=== PATIENT | female | born 1965 | race Two or more races ===

== ENCOUNTER → 2021-07-25 | Outpatient (CLI) | payer OTHER ==
[2021-07-25 08:21] LABS: Basophils # (auto) 0 10 ^3/uL (0-0.2); Basophils % (auto) 0.4 % (0.0-2.0); Eosinophils # (auto) 0.1 10 ^3/uL (0-0.8); Eosinophils % (auto) 1.1 % (0.0-7.0); Hematocrit 40.7 % (36.0-46.0); Hemoglobin 14.4 g/dL (12.2-16.2); Lymphocytes # (auto) 2.6 10 ^3/uL (0.4-5.4); Lymphocytes % (auto) 45.3 % (10.0-50.0); Mean Corpuscular Hemoglobin 29.9 pg (28.0-32.0); Mean Corpuscular Hgb Conc. 35.4 g/dL (32.0-36.0); Mean Corpuscular Volume 84.4 fL (80.0-100.0); Monocytes # (auto) 0.2 10 ^3/uL (0-1.3); Monocytes % (auto) 4.1 % (0.0-12.0); Neutrophils # (auto) 2.8 10 ^3/uL (1.6-8.6); Neutrophils % (auto) 49.1 % (37.0-80.0); Nucleated Red Blood Cells % 0.2 %; Red Blood Cells 4.82 10^6/uL (4.0-5.20); Red Cell Distribution Width 13.5 % (11.8-14.3); White Blood Cell 5.8 10^3/uL (4.4-10.8)
[2021-07-25 08:22] LABS: Urine Bacteria NONE SEEN /hpf (None Seen); Urine Blood Negative /uL (Negative); Urine Budding Yeast OCCASIONAL /hpf (None Seen); Urine Mucus FEW (None Seen); Urine Specific Gravity 1.023 (1.001-1.035); Urine WBC 6 /hpf (0 - 5)
[2021-07-25 09:03] LABS: Albumin 4.1 g/dL (3.4-5.0); Calcium 9.4 mg/dL (8.5-10.1); Potassium 4.5 mmol/L (3.5-5.1)
[2021-07-25 09:07] LABS: BUN/Creatinine Ratio 19.4; Bilirubin, Total 1.5 mg/dL (0.2-1.0); Total Protein 7.3 g/dL (6.4-8.2)
== END | disposition home or self-care (01) ==
LOC: LAB 07:49
PROVIDERS: ATTEND Internal Medicine
DX: E11.9 Type 2 diabetes mellitus without complications (principal); I10 Essential (primary) hypertension; E78.5 Hyperlipidemia, unspecified
CPT/HCPCS: 36415; 80053; 80061; 81001; 82043; 83036; 84443; 85025

== ENCOUNTER → 2021-08-11 | Outpatient (CLI) | payer OTHER | END | disposition home or self-care (01) | LOC: LAB 13:33 | PROVIDERS: ATTEND Internal Medicine | DX: E78.5 Hyperlipidemia, unspecified (principal); E11.9 Type 2 diabetes mellitus without complications; I10 Essential (primary) hypertension | CPT/HCPCS: 82270 ==

== ENCOUNTER → 2021-08-19 | Outpatient (CLI) | payer OTHER ==
[2021-08-19 10:09] LABS: Albumin 4.1 g/dL (3.4-5.0)
[2021-08-19 10:14] LABS: Bilirubin, Direct 0.4 mg/dL (0-0.2); Bilirubin, Total 1.4 mg/dL (0.2-1.0); Total Protein 7.7 g/dL (6.4-8.2)
== END | disposition home or self-care (01) ==
LOC: LAB 09:04
PROVIDERS: ATTEND Internal Medicine
DX: E78.5 Hyperlipidemia, unspecified (principal); E11.9 Type 2 diabetes mellitus without complications
CPT/HCPCS: 36415; 80076

== ENCOUNTER 2021-10-11 09:56 | Emergency (ER) | payer OTHER ==
[~2021-10-11] VITALS: Ht 172.7 cm; Wt 77.7 kg
[2021-10-11 11:01] LABS: Basophils # (auto) 0 10 ^3/uL (0-0.2); Basophils % (auto) 0.5 % (0.0-2.0); Eosinophils # (auto) 0.1 10 ^3/uL (0-0.8); Eosinophils % (auto) 1.2 % (0.0-7.0); Hematocrit 45.7 % (36.0-46.0); Lymphocytes # (auto) 2.2 10 ^3/uL (0.4-5.4); Lymphocytes % (auto) 40.5 % (10.0-50.0); Mean Corpuscular Hemoglobin 28.4 pg (28.0-32.0); Mean Corpuscular Hgb Conc. 32.8 g/dL (32.0-36.0); Mean Corpuscular Volume 86.4 fL (80.0-100.0); Monocytes # (auto) 0.3 10 ^3/uL (0-1.3); Neutrophils # (auto) 2.9 10 ^3/uL (1.6-8.6); Neutrophils % (auto) 52.8 % (37.0-80.0); Nucleated Red Blood Cells % 0.1 %; Red Blood Cells 5.29 10^6/uL (4.0-5.20); White Blood Cell 5.5 10^3/uL (4.4-10.8)
[2021-10-11 11:25] LABS: Albumin 4.4 g/dL (3.4-5.0); BUN/Creatinine Ratio 22.2; Calcium 9.2 mg/dL (8.5-10.1); Magnesium 2.1 mg/dL (1.6-2.6)
[2021-10-11 11:28] LABS: Bilirubin, Total 1.2 mg/dL (0.2-1.0); Total Protein 7.6 g/dL (6.4-8.2)
[2021-10-11 13:20] VITALS: BP 139/87
== END 2021-10-11 13:28 | disposition home or self-care (01) ==
LOC: ER 09:56
DX: R07.89 Other chest pain (principal); R00.2 Palpitations; E11.9 Type 2 diabetes mellitus without complications; I10 Essential (primary) hypertension; E78.5 Hyperlipidemia, unspecified; Z85.3 Personal history of malignant neoplasm of breast
CPT/HCPCS: 36415; 71046; 80053; 83735; 84443; 84484; 85025; 93005

== ENCOUNTER → 2021-12-01 | Outpatient (CLI) | payer OTHER ==
[2021-12-01 08:30] LABS: Basophils # (auto) 0 10 ^3/uL (0-0.2); Basophils % (auto) 0.4 % (0.0-2.0); Eosinophils # (auto) 0.1 10 ^3/uL (0-0.8); Eosinophils % (auto) 1.4 % (0.0-7.0); Hematocrit 44.7 % (36.0-46.0); Hemoglobin 15.1 g/dL (12.2-16.2); Lymphocytes # (auto) 2.6 10 ^3/uL (0.4-5.4); Lymphocytes % (auto) 44.8 % (10.0-50.0); Mean Corpuscular Hemoglobin 28.3 pg (28.0-32.0); Mean Corpuscular Hgb Conc. 33.7 g/dL (32.0-36.0); Mean Corpuscular Volume 84.1 fL (80.0-100.0); Monocytes # (auto) 0.3 10 ^3/uL (0-1.3); Monocytes % (auto) 4.6 % (0.0-12.0); Neutrophils # (auto) 2.8 10 ^3/uL (1.6-8.6); Neutrophils % (auto) 48.8 % (37.0-80.0); Nucleated Red Blood Cells % 0.2 %; Red Blood Cells 5.32 10^6/uL (4.0-5.20); Red Cell Distribution Width 12.9 % (11.8-14.3); White Blood Cell 5.8 10^3/uL (4.4-10.8)
[2021-12-01 09:18] LABS: Albumin 3.9 g/dL (3.4-5.0); Anion Gap 9 (5-15); Carbon Dioxide 27 mmol/L (21-32); Chloride 103 mmol/L (98-107); Potassium 4.3 mmol/L (3.5-5.1); Sodium 139 mmol/L (136-145)
[2021-12-01 09:26] LABS: Alanine Aminotransferase 58 U/L (13-56); Alkaline Phosphatase 70 U/L (45-117); Aspartate Aminotransferase 28 U/L (15-37); BUN/Creatinine Ratio 22.6; Bilirubin, Total 1.2 mg/dL (0.2-1.0); Blood Urea Nitrogen 14 mg/dL (7-18); Calcium 9.3 mg/dL (8.5-10.1); Cholesterol 161 mg/dL (< 200); GFR African American 128 mL/min; GFR Non-African American 106 mL/min; Glucose 224 mg/dL (74-106); HDL Cholesterol 30 mg/dL (40-59); Total Protein 7.3 g/dL (6.4-8.2); Triglycerides 603 mg/dL (< 150)
== END | disposition home or self-care (01) ==
LOC: LAB 08:11
PROVIDERS: ATTEND Internal Medicine
DX: E11.9 Type 2 diabetes mellitus without complications (principal); R79.89 Other specified abnormal findings of blood chemistry; E78.5 Hyperlipidemia, unspecified
CPT/HCPCS: 36415; 80053; 80061; 83036; 85025

== ENCOUNTER → 2021-12-04 | Outpatient (CLI) | payer OTHER ==
[2021-12-04 10:10] LABS: Cholesterol 153 mg/dL (< 200); HDL Cholesterol 29 mg/dL (40-59); Triglycerides 490 mg/dL (< 150)
== END | disposition home or self-care (01) ==
LOC: LAB 09:21
PROVIDERS: ATTEND Internal Medicine
DX: R79.89 Other specified abnormal findings of blood chemistry (principal)
CPT/HCPCS: 36415; 80061

== ENCOUNTER → 2022-10-13 | Outpatient (CLI) | payer OTHER ==
[2022-10-13 08:57] LABS: Urine Bacteria NONE SEEN /hpf (None Seen); Urine Blood Negative /uL (Negative); Urine Clarity Clear (Clear); Urine Color Yellow (Yellow); Urine Protein, UAD Negative (Negative); Urine Specific Gravity 1.047 (1.001-1.035); Urine Urobilinogen Normal (Negative); Urine WBC 17 /hpf (0 - 5); Urine pH 5.5 (5.0-8.0)
[2022-10-13 09:16] LABS: Albumin 3.8 g/dL (3.4-5.0); Potassium 3.9 mmol/L (3.5-5.1)
[2022-10-13 09:23] LABS: BUN/Creatinine Ratio 23.1 (10.0-20.0); Bilirubin, Total 1.1 mg/dL (0.2-1.0); Calcium 9.3 mg/dL (8.5-10.1)
[2022-10-13 09:40] LABS: Micro Albumin 13.9 mg/L (0-30.0)
== END | disposition home or self-care (01) ==
LOC: LAB 08:08
PROVIDERS: ATTEND Internal Medicine
DX: E11.9 Type 2 diabetes mellitus without complications (principal); E78.5 Hyperlipidemia, unspecified
CPT/HCPCS: 36415; 80053; 80061; 81001; 82043; 82570; 83036

== ENCOUNTER → 2022-11-18 | Outpatient (CLI) | payer OTHER ==
[2022-11-18 08:35] LABS: Albumin 4.7 g/dL (3.2-4.8); Bilirubin, Direct 0.4 mg/dL (<0.3); Bilirubin, Total 1.6 mg/dL (0.2-1.0); Total Protein 7.4 g/dL (5.7-8.2)
== END | disposition home or self-care (01) ==
LOC: LAB 07:45
PROVIDERS: ATTEND Internal Medicine
DX: E78.5 Hyperlipidemia, unspecified (principal)
CPT/HCPCS: 36415; 80076

== ENCOUNTER → 2023-01-20 | Outpatient (CLI) | payer OTHER ==
[2023-01-20 08:42] LABS: Creatinine, Urine 93.62 mg/dL (30.0-125.0)
[2023-01-20 08:46] LABS: Alanine Aminotransferase 22 U/L (7-40); Albumin 4.5 g/dL (3.2-4.8); Alkaline Phosphatase 44 U/L (46-116); Anion Gap 6 (5-15); Aspartate Aminotransferase 15 U/L (13-40); BUN/Creatinine Ratio 16.7 (10.0-20.0); Blood Urea Nitrogen 11 mg/dL (9-23); Calcium 9.5 mg/dL (8.5-10.1); Carbon Dioxide 29 mmol/L (20-30); Chloride 110 mmol/L (98-107); Glucose 115 mg/dL (74-106); LDL Cholesterol 36 mg/dL (< 100); Potassium 4.3 mmol/L (3.5-5.1); Sodium 145 mmol/L (136-145); Triglycerides 95 mg/dL (< 150)
[2023-01-20 08:47] LABS: Bilirubin, Direct 0.7 mg/dL (<0.3); Bilirubin, Total 1.5 mg/dL (0.2-1.0); Cholesterol 82 mg/dL (< 200); HDL Cholesterol 26 mg/dL (40-59); Total Protein 6.8 g/dL (5.7-8.2)
== END | disposition home or self-care (01) ==
LOC: LAB 07:47
PROVIDERS: ATTEND Internal Medicine
DX: E11.9 Type 2 diabetes mellitus without complications (principal); E78.5 Hyperlipidemia, unspecified
CPT/HCPCS: 36415; 80053; 80061; 80076; 82043; 82570; 83036

== ENCOUNTER → 2023-10-28 | Outpatient (CLI) | payer OTHER ==
[2023-10-28 08:28] LABS: Basophils # (auto) 0 10 ^3/uL (0-0.2); Basophils % (auto) 0.3 % (0.0-2.0); Eosinophils # (auto) 0 10 ^3/uL (0-0.8); Eosinophils % (auto) 0.6 % (0.0-7.0); Hematocrit 44.8 % (36.0-46.0); Hemoglobin 15.6 g/dL (12.2-16.2); Lymphocytes # (auto) 1.8 10 ^3/uL (0.4-5.4); Lymphocytes % (auto) 28.9 % (10.0-50.0); Mean Corpuscular Hemoglobin 30.4 pg (28.0-32.0); Mean Corpuscular Hgb Conc. 34.8 g/dL (32.0-36.0); Mean Corpuscular Volume 87.3 fL (80.0-100.0); Monocytes # (auto) 0.5 10 ^3/uL (0-1.3); Monocytes % (auto) 7.6 % (0.0-12.0); Neutrophils # (auto) 3.8 10 ^3/uL (1.6-8.6); Neutrophils % (auto) 62.6 % (37.0-80.0); Nucleated Red Blood Cells % 0.2 %; Platelet Count (auto) 127 10^3/uL (140-450); Red Blood Cells 5.13 10^6/uL (4.0-5.20); Red Cell Distribution Width 12.9 % (11.8-14.3); White Blood Cell 6.1 10^3/uL (4.4-10.8)
[2023-10-28 09:43] LABS: Creatinine, Urine 153.52 mg/dL (30.0-125.0)
[2023-10-28 09:46] LABS: Alanine Aminotransferase 10 U/L (7-40); Alkaline Phosphatase 64 U/L (46-116); Anion Gap 6 (5-15); BUN/Creatinine Ratio 17.7 (10.0-20.0); Blood Urea Nitrogen 14 mg/dL (9-23); Calcium 10.3 mg/dL (8.7-10.4); Carbon Dioxide 28 mmol/L (20-30); Chloride 104 mmol/L (98-107); Glucose 129 mg/dL (74-106); LDL Cholesterol 98 mg/dL (< 100); Potassium 4.7 mmol/L (3.5-5.1); Sodium 138 mmol/L (136-145); Triglycerides 158 mg/dL (< 150)
[2023-10-28 09:47] LABS: Albumin 4.7 g/dL (3.2-4.8); Aspartate Aminotransferase 10 U/L (13-40); Cholesterol 162 mg/dL (< 200); HDL Cholesterol 39 mg/dL (40-59); Total Protein 7.8 g/dL (5.7-8.2)
== END | disposition home or self-care (01) ==
LOC: LAB 08:04
PROVIDERS: ATTEND Internal Medicine
DX: I10 Essential (primary) hypertension (principal); E11.9 Type 2 diabetes mellitus without complications; E78.5 Hyperlipidemia, unspecified; R00.0 Tachycardia, unspecified
CPT/HCPCS: 36415; 80053; 80061; 82043; 82570; 83036; 84443; 85025; 85379

== ENCOUNTER → 2023-11-08 | Outpatient (CLI) | payer OTHER ==
--- NOTE | 2023-11-08 14:54 | DVHSR ---
APPROVED REPORT EXAM: Two-dimensional and M-mode echocardiogram with Doppler and color Doppler. INDICATION Tachycardia RISK FACTORS Height: 68, Weight: 151 DIMENSIONS LVDd (3.8-5.7cm)LA (2D)2.3 (1.9-4.0cm)Aortic Root2.8 (2.0-3.7cm) EF (%) 56.0 (55-70%)Rt. Atrium3.2 (1.9-4.0cm)Asc. Aorta cm Mitral Valve MitralMitral Stenosis E wave0.66m/sMV Mean GR.mmHg A wave0.98m/sMV Peak GR.62mmHg E/A ratio0.72D MVAcm2 DECEL [id number] 1/2 Timems Aortic Valve Aortic ValveAortic Stenosis V10.93m/Lu Mean GR.2mmHg V20.94m/Lu Peak GR.4mmHg LVOT Diameter2.0 (1.8-2.4cm)Doppler AVA3.11cm2 Tricuspid Valve TR Velocity2.19m/s [id number] Other Information Quality : Technically LimitedRhythm : Technically limited study due to body habitus. Conclusion Parasternals not well visualized due to breast augmentation. Overall preserved left ventricular systolic function, estimated ejection fraction of 55%. There is a grade 1 diastolic dysfunction. Normal right ventricular size and dimension. Normal right ventricular systolic function. Normal pao trial size and dimension. Normal aortic valve structure and function. Normal mitral valve structure and function. Normal tricuspid valve structure and function. The pulmonary valve is grossly normal. No pericardial effusion.
== END | disposition home or self-care (01) ==
LOC: XYW 13:34
PROVIDERS: ATTEND Internal Medicine
DX: R00.0 Tachycardia, unspecified (principal)
CPT/HCPCS: 93306

== ENCOUNTER → 2023-12-06 | Outpatient (CLI) | payer OTHER ==
[2023-12-06 08:06] LABS: Albumin 4.6 g/dL (3.2-4.8); Bilirubin, Direct 0.2 mg/dL (<0.3); Bilirubin, Total 0.8 mg/dL (0.2-1.0); Total Protein 7.3 g/dL (5.7-8.2)
== END | disposition home or self-care (01) ==
LOC: LAB 07:07
PROVIDERS: ATTEND Internal Medicine
DX: E78.5 Hyperlipidemia, unspecified (principal)
CPT/HCPCS: 36415; 80076

== ENCOUNTER 2024-10-06 06:33 | Emergency (ER) | payer MEDICAID, OTHER ==
[~2024-10-06] VITALS: Ht 172.7 cm; Wt 75.5 kg
[2024-10-06] MEDS ORDERED: SODIUM CHLORIDE 0.9% 1,000 ML IV ONE ×2 (07:00)
[2024-10-06] MEDS ORDERED: ONDANSETRON HCL 4 MG/2 ML VIAL IV ONE (07:00)
[2024-10-06] MEDS ORDERED: MORPHINE SULFATE 4 MG/ML SYR/VIAL IV ONE (07:00)
--- NOTE | 2024-10-06 07:07 | ED.PDOC ---
SOB-HPI HPI Comments 58 year old female presents to the ED with a chief complaint of shortness of breath onset 1 day. Patient states she has been experiencing shortness of breath for the past day, states she has been under stress recently, experiencing anxiety as well. For the past week, patient noticed intermittent palpitations. PMHx cancer, DM, HLD, HTN. Denies headache, dizziness, nausea, vomiting, diarrhea, abdominal pain, chest pain, fever, chills, cough, congestion. No other symptoms or modifying factors present at this time. Chief Complaint: Shortness of Breath Time Seen by MD: 06:50 Reviewed notes: Medications, Allergies Information Source: Patient Mode of Arrival: Ambulatory Severity: Moderate Timing: Days Duration: Since onset Context: At Rest PE Risk Factors: None History of: Anxiety Prehospital treatment: None Modifying Factors: Nothing Associated Signs and Symptoms: None Past Medical History PAST MEDICAL HISTORY: Anxiety, Cancer, DM, High Lipids, HTN Surgical History: Cholecystectomy, , Hysterectomy ECONOMICS TEACHER History: No Pertinent ECONOMICS TEACHER History Family History Family History: Family hx of DM Social History Smoker: Non-Smoker Alcohol: Denies ETOH Use Drugs: Denies Drug Use Lives In: Home Constitutional: denies: chills, diaphoresis, fatigue, fever, malaise, sweats, weakness, others EENTM: denies: blurred vision, double vision, ear bleeding, ear discharge, ear drainage, ear pain, ear ringing, eye pain, eye redness, hearing loss, mouth pain, mouth swelling, nasal discharge, nose bleeding, nose congestion, nose pain, photophobia, tearing, throat pain, throat swelling, voice changes, others Respiratory: reports: shortness of breath; denies: cough, hemoptysis, orthopnea, SOB at rest, SOB with excertion, stridor, wheezing, others Cardiovascular: reports: palpitations; denies: chest pain, dizzy spells, diaphoresis, Dyspnea on exertion, edema, irregular heart beat, left arm pain, lightheadedness, PND, syncope, others Gastrointestinal: denies: abdomen distended, abdominal pain, blood streaked bowels, constipated, diarrhea, dysphagia, difficulty swallowing, hematemesis, melena, nausea, poor appetite, poor fluid intake, rectal bleeding, rectal pain, vomiting, others Genitourinary: denies: abnormal vagina bleeding, burning, dyspareunia, dysuria, flank pain, frequency, hematuria, incontinence, pain, , vagina dischar ge, urgency, others Neurological: denies: dizziness, fainting, headache, left sided numbness, left sided weakness, numbness, paresthesia, pre-existing deficit, right sided numbness, right sided weakness, seizure, speech problems, tingling, tremors, weakness, others Musculoskeletal: denies: back pain, gout, joint pain, joint swelling, muscle pain, muscle stiffness, neck pain, others Integumetry: denies: bruises, change in color, change in hair/nails, dryness, laceration, lesions, lumps, rash, wounds, others Allergic/Immunocompromised: denies: Difficulty Healing, Frequent Infections, Hives, Itching, others Hematologic/Lymphatic: denies: anemia, blood clots, easy bleeding, easy bruising, swollen glands, others Endocrine: denies: excessive hunger, excessive sweating, excessive thirst, excessive urination, flushing, intolerance to cold, intolerance to heat, unexplained weight gain, unexplained weight loss, others Psychiatric: reports: anxiety; denies: bipolar disorder, depression, hopeless, panic disorder, schizophrenia, sleepless, suicidal, others All Other Systems: Reviewed and Negative Physical Exam General Appearance: Moderate Distress, Normal HEENT: Normal ENT Inspection, Pharynx Normal, TMs Normal Neck: Full Range of Motion, Non-Tender, Normal, Normal Inspection Respiratory: Chest Non-Tender, Lungs Clear, No Accessory Muscle Use, No Respiratory Distress, Normal Breath Sounds Cardiovascular: No Edema, No JVD, No Murmur, No Gallop, Normal Peripheral Pulses, Regular Rate/Rhythm Breast Exam: Deferred Gastrointestinal: No Organomegaly, Non Tender, No Pulsatile Mass, Normal Bowel Sounds, Soft Genitalia: Deferred Pelvic: Deferred Rectal: Deferred Extremities: No calf tenderness, Normal capillary refill, Normal inspection, Normal range of motion, Non-tender, No pedal edema Musculoskeletal : Apperance: Normal Neurologic: Alert, guard dance hall II-XII nml as Tested, No Motor Deficits, Normal Affect, Normal Mood, No Sensory Deficits Cerebellar Function: Normal Reflexes: Normal Skin: Dry, Normal Color, Warm Peripheral Pulses: 3+ Radial (R), 3+ Radial (L) Lymphatic: No Adenopathy Was a procedure done? Was a procedure done?: No Differential Dx Differential Diagnosis: Anxiety, Asthma, Bronchitis, CHF, COPD X-Ray, Labs, Meds, VS Vital Signs Date Time Temp Pulse Resp B/P (MAP) Pulse Ox O2 Delivery O2 Flow Rate FiO2 10/06/24 06:34 98.2 98 16 155/101 96 98.2 Lab Test 10/06/24 07:08 Range/Units D-Dimer, Quantitative 0.25 0.0-0.49 mg/L FEU Patient alert. Came in because of shortness a breath. Saturation pristine on room air. No sign of any distress. Ambulating without difficulty. Respiratory rate within normal limits. Lungs clear. Blood pressure slightly elevated. Possibly from anxiety. Was given clonidine. D-dimer within normal limits. Was given prescription of prednisone amoxicillin antibiotic. Explained to the patient. Was told to follow up with her primary care physician. Was told to come back if there is any problem. [place] [id number] Ph: [phone] DIAGNOSTIC IMAGING Diagnostic Imaging Report : [id number] Signed PATIENT: CRISTIAN METCALF ACCT: [id number] UNIT: [id number] : 1965 LOC: ER ROOM / BED: / AGE / SEX: 58 / F ADM STATUS: REG ER SERVICE 5 ORDERING PHYSICIAN: MELANIE HOANG MD PROCEDURE(s): CXRP - CHEST PORTABLE REASON: sob ORDER NUMBER(s): [id number], ACCESSION NUMBER(s): [id number] CHEST RADIOGRAPH Indication: sob Technique: Single frontal view of the chest was obtained Comparison: CHEST TWO VIEWS ROUTINE on DOS: 10/11/21 FINDINGS: Lines and Tubes: None Lungs: No focal consolidation. Pleura: No effusion. No pneumothorax. Cardiomediastinal contours: Unremarkable Bones: No acute osseous abnormality. Mild S shaped curvature of the thoracolumbar spine. IMPRESSION: 1. No acute cardiopulmonary disease. ATED BY: ARELI ROTH MD DICTATED DATE/TIME: 10/06/24754 SIGNED BY: ARELI ROTH MD SIGNED DATE/TIME: 10/06/24754 CC: Time of 1ST Reevaluation: 07:20 Reevaluation 1ST: Unchanged Patient Education/Counseling: Diagnosis, Treatment, Prognosis Family Education/Counseling: No Family Present Additional Information The following tests were ordered, and results were reviewed by me: CBC, CMP, UA, D-DIMER, XY CHEST I reviewed and agreed with the following test results read by other providers: XY CHEST I discussed treatment and results with medical personnel and: patient Comprehensive systems review obtained and negative except for what is stated in the HPI. SEPSIS Sepsis Screen Date sepsis recognized/suspect: Oct 06, 2024 Time Sepsis recognized/suspect: 636 Recent Procedure: No On Antibiotic Therapy: No Respiratory Rate >20: No Heart Rate >90: No Temp<36 C (96.8 F) or >38.3 C: No SBP <90 or MAP <65 mmHG: No New Acute Mental Status Change: No Is the patient on CPAP, BIPAP,: No Physician Orders Chest Portable (10/06/24 07:16) Vital Signs Date Time Temp Pulse Resp B/P (MAP) Pulse Ox O2 Delivery O2 Flow Rate FiO2 10/06/24 06:34 98.2 98 16 155/101 96 98.2 Departure 1 Departure Time of Disposition: 07:27 Impression: Primary Impression: Pneumonitis Additional Impression: Hypertension Qualified Codes: I10 - Essential (primary) hypertension Disposition: HOME / SELF CARE / HOMELESS Condition: Good e-Prescriptions Prednisone (Prednisone) 10 Mg Tab 10 MG PO DAILY for 5 Days, #5 MG Prov: MELANIE HOANG MD 10/06/24 Amoxicillin Trihydrate (Amoxicillin) 500 Mg Tab 1 TAB PO TID for 5 Days, #15 TAB Prov: MELANIE HOANG MD 10/06/24 Discharged With: Self Critical Care Note Critical Care Time?: No Stability Stability form required: No Heart Score Heart Score: Heart Score Response (Comments) Value History N/A 0 EKG N/A 0 Age N/A 0 Risk Factors N/A 0 Troponin N/A 0 Total 0 I personally scribed for MELANIE HOANG MD ([email or web address]) on 10/06/24 at 07:07. Electronically submitted by Clare Stanford ([email or web address]). I personally scribed for MELANIE HOANG MD ([email or web address]) on 10/06/24 at 07:18. Electronically submitted by Clare Stanford ([email or web address]). I personally scribed for MELANIE HOANG MD ([email or web address]) on 10/06/24 at 09:30. Electronically submitted by Clare Stanford ([email or web address]). MELANIE HOANG MD Oct 06, 2024 07:07
--- NOTE | 2024-10-06 07:57 | DVH ---
CHEST RADIOGRAPH Indication: sob Technique: Single frontal view of the chest was obtained Comparison: CHEST TWO VIEWS ROUTINE on DOS: 10/11/21 FINDINGS: Lines and Tubes: None Lungs: No focal consolidation. Pleura: No effusion. No pneumothorax. Cardiomediastinal contours: Unremarkable Bones: No acute osseous abnormality. Mild S shaped curvature of the thoracolumbar spine. IMPRESSION: 1. No acute cardiopulmonary disease.
[2024-10-06] MEDS ORDERED: PRED10TA PO (10:35)
[2024-10-06] MEDS ORDERED: AMOX500T3 PO (10:35)
[2024-10-06 14:36] VITALS: BP 137/90; PULSE 85; RESP 16; TEMP 98.3; O2SAT 95
== END 2024-10-06 14:38 | disposition home or self-care (01) ==
LOC: ER 06:33
DX: J98.4 Other disorders of lung (principal); I10 Essential (primary) hypertension; F41.9 Anxiety disorder, unspecified; E11.9 Type 2 diabetes mellitus without complications; E78.5 Hyperlipidemia, unspecified; Z85.9 Personal history of malignant neoplasm, unspecified; Z90.710 Acquired absence of both cervix and uterus; Z90.49 Acquired absence of other specified parts of digestive tract; Z98.890 Other specified postprocedural states
CPT/HCPCS: 36415; 71045; 85379

== ENCOUNTER 2024-10-22 17:11 | Emergency (ER) | payer MEDICAID ==
[~2024-10-22] VITALS: Ht 172.7 cm; Wt 75.0 kg
[~2024-10-22 17:11] MED LIST: AMOX500T3 PO; PRED10TA PO
--- NOTE | 2024-10-22 17:55 | ED.PDOC ---
HPI Comments 58 y.o female with PMHx of HTN and DM, presents to the ED for a chief complaint of palpitations associated with left arm tingling sensation and upper back pain that started one month ago. Patient reports being seen by PCP 3-4 days ago and was referred to a orchard worker with pending referral. Patient denies any chest pain, nausea, vomiting, SOB, fever, chills or leg swelling. Chief Complaint: Palpitations Time Seen by MD: 17:51 Reviewed Notes: Nurses Notes, Medications, Allergies Allergies: Coded Allergies: NO KNOWN ALLERGIES (Unverified , 10/11/21) Home Meds Active Scripts Prednisone (Prednisone) 10 Mg Tab, 10 MG PO DAILY for 5 Days, #5 MG Prov:MELANIE HOANG MD 10/06/24 Amoxicillin Trihydrate (Amoxicillin) 500 Mg Tab, 1 TAB PO TID for 5 Days, #15 TAB Prov:MELANIE HOANG MD 10/06/24 Information Source: Patient Mode of Arrival: Ambulatory Severity: Moderate Timing: Months (1) Duration: Since onset Onset: At Rest Cardiac Risk Factors: HTN, Diabetes PE Risk Factors: None History of: None Modifying Factors: Nothing Associated Signs and Symptoms: Palpitations Past Medical History PAST MEDICAL HISTORY: Anxiety, Cancer, DM, High Lipids, HTN Surgical History: Cholecystectomy, , Hysterectomy STRUCTURAL STEEL WORKER HELPER History: No Pertinent STRUCTURAL STEEL WORKER HELPER History Family History Family History: Family hx of DM Social History Smoker: Non-Smoker Alcohol: Denies ETOH Use Drugs: Denies Drug Use Lives In: Home Constitutional: denies: chills, diaphoresis, fatigue, fever, malaise, sweats, weakness, others EENTM: denies: blurred vision, double vision, ear bleeding, ear discharge, ear drainage, ear pain, ear ringing, eye pain, eye redness, hearing loss, mouth pain , mouth swelling, nasal discharge, nose bleeding, nose congestion, nose pain, photophobia, tearing, throat pain, throat swelling, voice changes, others Respiratory: denies: cough, hemoptysis, orthopnea, SOB at rest, shortness of breath, SOB with excertion, stridor, wheezing, others Cardiovascular: reports: palpitations; denies: chest pain, dizzy spells, diaphoresis, Dyspnea on exertion, edema, irregular heart beat, left arm pain, lightheadedness, PND, syncope, others Gastrointestinal: denies: abdomen distended, abdominal pain, blood streaked bowels, constipated, diarrhea, dysphagia, difficulty swallowing, hematemesis, melena, nausea, poor appetite, poor fluid intake, rectal bleeding, rectal pain, vomiting, others Genitourinary: denies: abnormal vagina bleeding, burning, dyspareunia, dysuria, flank pain, frequency, hematuria, incontinence, pain, , vagina discharge, urgency, others Neurological: denies: dizziness, fainting, headache, left sided numbness, left sided weakness, numbness, paresthesia, pre-existing deficit, right sided numbness, right sided weakness, seizure, speech problems, tingling, tremors, weakness, others Musculoskeletal: denies: back pain, gout, joint pain, joint swelling, muscle pain, muscle stiffness, neck pain, others Integumetry: denies: bruises, change in color, change in hair/nails, dryness, laceration, lesions, lumps, rash, wounds, others Allergic/Immunocompromised: denies: Difficulty Healing, Frequent Infections, Hives, Itching, others Hematologic/Lymphatic: denies: anemia, blood clots, easy bleeding, easy bruising, swollen glands, others Endocrine: denies: excessive hunger, excessive sweating, excessive thirst, excessive urination, flushing, intolerance to cold, intolerance to heat, unexplained weight gain, unexplained weight loss, others Psychiatric: denies: anxiety, bipolar disorder, depression, hopeless, panic disorder, schizophrenia, sleepless, suicidal, others All Other Systems: Reviewed and Negative Physical Exam General Appearance: No Apparent Distress, Normal HEENT: Normal ENT Inspection, PERRL/EOMI Neck: Full Range of Motion, Normal Inspection Respiratory: No Accessory Muscle Use, No Respiratory Distress, Normal Breath Sounds Cardiovascular: Normal Peripheral Pulses, Regular Rate/Rhythm Breast Exam: Deferred Gastrointestinal: No Organomegaly, Non Tender, No Pulsatile Mass Genitalia: Deferred Pelvic: Deferred Rectal: Deferred Extremities: Normal inspection, Normal range of motion Neurologic: Alert, No Motor Deficits, Normal Mood Cerebellar Function: Normal, NOT DONE Reflexes: NOT DONE Skin: Dry, Normal Color, Warm Lymphatic: NOT DONE Was a procedure done? Was a procedure done?: No CP Differential Dx Differential Diagnosis: Anxiety / Panic Attack, Electrolyte Disorder, Heart Failure, Hyperthyroidism, Hyperventilation, Sinus Tachycardia X-Ray, Labs, Meds, VS Vital Signs Date Time Temp Pulse Resp B/P (MAP) Pulse Ox O2 Delivery O2 Flow Rate FiO2 10/22/24 17:20 96 10/22/24 17:17 98.3 106 18 159/104 97 98.3 Lab Test 10/22/24 18:31 10/22/24 17:38 10/22/24 17:26 Range/Units Troponin I High Sensitivity Pending < 3 L </=34 ng/L White Blood Count 6.8 4.4-10.8 10^3/uL Red Blood Count 5.16 4.0-5.20 10^6/uL Hemoglobin 15.6 12.2-16.2 g/dL Hematocrit 44.3 36.0-46.0 % Mean Corpuscular Volume 85.9 80.0-100.0 fL Mean Corpuscular Hemoglobin 30.2 28.0-32.0 pg Mean Corpuscular Hemoglobin Concent 35.1 32.0-36.0 g/dL Red Cell Distribution Width 13.3 11.8-14.3 % Platelet Count 144 140-450 10^3/uL Mean Platelet Volume 9.8 6.9-10.8 fL Neutrophils (%) (Auto) 47.6 37.0-80.0 % Lymphocytes (%) (Auto) 46.9 10.0-50.0 % Monocytes (%) (Auto) 4.3 0.0-12.0 % Eosinophils (%) (Auto) 1.0 0.0-7.0 % Basophils (%) (Auto) 0.2 0.0-2.0 % Neutrophils # (Auto) 3.2 1.6-8.6 10 ^3/uL Lymphocytes # (Auto) 3.2 0.4-5.4 10 ^3/uL Monocytes # (Auto) 0.3 0-1.3 10 ^3/uL Eosinophils # (Auto) 0.1 0-0.8 10 ^3/uL Basophils # (Auto) 0 0-0.2 10 ^3/uL Nucleated Red Blood Cells 0.0 % Prothrombin Time 10.2 9.3-11.8 sec Prothrombin Time INR 0.96 0.9-1.15 Activated Partial Thromboplast Time 23.7 L 24.5-34.5 SEC D-Dimer, Quantitative 0.25 0.0-0.49 mg/L FEU Sodium Level 141 136-145 mmol/L Potassium Level 3.8 3.5-5.1 mmol/L Chloride Level 104 98-107 mmol/L Carbon Dioxide Level 25 20-31 mmol/L Anion Gap 12 5-15 Blood Urea Nitrogen 10 9-23 mg/dL Creatinine 0.74 0.550-1.02 mg/dL Glomerular Filtration Rate Calc 94 >90 mL/min BUN/Creatinine Ratio 13.5 10.0-20.0 Serum Glucose 136 H 74-106 mg/dL Calcium Level 10.1 8.7-10.4 mg/dL Magnesium Level 2.0 1.6-2.6 mg/dL Total Bilirubin 2.0 H 0.2-1.0 mg/dL Aspartate Amino Transferase (AST) 19 13-40 U/L Alanine Aminotransferase (ALT) 22 7-40 U/L Alkaline Phosphatase 82 46-116 U/L B-Type Natriuretic Peptide 7.15 0-100 pg/mL Total Protein 7.2 5.7-8.2 g/dL Albumin 4.8 3.2-4.8 g/dL POC Glucose 137 H 70-106 mg/dl X-Ray, Labs, Meds, VS Comment This 58-year-old female presents secondary to a several week history of intermittently feeling her heart race. Her heart rate spontaneously resolves. She has an upcoming appointment with the Cardiology. She denies ever having chest pain. Here, workup was benign including heart score of three. As such, she was discharged home. She is asked to follow up with her PCP in the morning return to the ER for new/worse has worsening symptoms. Additionally, she is asked to reach out to her orchard worker for a sooner appointment. Time of 1ST Reevaluation: 18:30 Reevaluation 1ST: Unchanged Patient Education/Counseling: Diagnosis, Treatment, Prognosis Family Education/Counseling: No Family Present SEPSIS Sepsis Screen Date sepsis recognized/suspect: Oct 22, 2024 Time Sepsis recognized/suspect: 1715 Recent Procedure: No On Antibiotic Therapy: No Respiratory Rate >20: No Heart Rate >90: Yes Temp<36 C (96.8 F) or >38.3 C: No SBP <90 or MAP <65 mmHG: No New Acute Mental Status Change: No Is the patient on CPAP, BIPAP,: No Physician Orders Chest Portable (10/22/24 17:24) Urinalysis (10/22/24 17:24) Electrocardigram (10/22/24 17:24) Troponin-I Hs (10/22/24 18:24) Electrocardigram (10/22/24 18:24) Test, Urine (10/22/24 17:24) Drug Screen (10/22/24 17:24) Vital Signs Date Time Temp Pulse Resp B/P (MAP) Pulse Ox O2 Delivery O2 Flow Rate FiO2 10/22/24 17:20 96 10/22/24 17:17 98.3 106 18 159/104 97 98.3 Laboratory Tests Test 10/22/24 17:38 White Blood Count 6.8 10^3/uL (4.4-10.8) Departure 1 Departure Time of Disposition: 18:46 Impression: Primary Impression: Palpitations Disposition: 01 HOME / SELF CARE / HOMELESS Condition: Good Discharged With: Self Critical Care Note Critical Care Time?: No Stability Stability form required: No Heart Score Heart Score: Heart Score Response (Comments) Value History Slightly Suspicious 0 EKG Repolarization Disturb 1 Age 45-64 1 Risk Factors 1 or 2 risk factors 1 Troponin Normal limit 0 Total 3 I personally scribed for CHITO HAN MD ([email or web address]) on 10/22/24 at 17:55. Electronically submitted by Aisha Garduno ([email or web address] I personally scribed for CHITO HAN MD ([email or web address]) on 10/22/24 at 18:01. Electronically submitted by Aisha Garduno ([email or web address] CHITO HAN MD Oct 22, 2024 17:55
[2024-10-22 17:59] LABS: Hematocrit 44.3 % (36.0-46.0); Hemoglobin 15.6 g/dL (12.2-16.2); Mean Corpuscular Hemoglobin 30.2 pg (28.0-32.0); Mean Corpuscular Volume 85.9 fL (80.0-100.0); Nucleated Red Blood Cells % 0.0 %
[2024-10-22 18:13] LABS: Alanine Aminotransferase 22 U/L (7-40); Alkaline Phosphatase 82 U/L (46-116); Anion Gap 12 (5-15); BUN/Creatinine Ratio 13.5 (10.0-20.0); Blood Urea Nitrogen 10 mg/dL (9-23); Calcium 10.1 mg/dL (8.7-10.4); Carbon Dioxide 25 mmol/L (20-31); Chloride 104 mmol/L (98-107); Magnesium 2.0 mg/dL (1.6-2.6); Potassium 3.8 mmol/L (3.5-5.1); Sodium 141 mmol/L (136-145); Total Protein 7.2 g/dL (5.7-8.2)
[2024-10-22 18:17] LABS: INR 0.96 (0.9-1.15); Partial Thromboplastin Time 23.7 SEC (24.5-34.5); Prothrombin Time 10.2 sec (9.3-11.8)
[2024-10-22 18:26] LABS: Albumin 4.8 g/dL (3.2-4.8); Bilirubin, Total 2.0 mg/dL (0.2-1.0); Glucose 136 mg/dL (74-106)
[2024-10-22 19:18] VITALS: BP 153/96; PULSE 86; RESP 16; TEMP 98.4; O2SAT 96
--- NOTE | 2024-10-23 07:43 | ECG ---
[facility] Test Date: 2024-10-22 Test Time: 17:20:09 Pat Name: CRISTIAN METCALF Department: ED Room: Gender: F Wreath Machine Operator: CHETAN : 1965 Requested By: CHITO HAN Order Number: [id number] Reading MD: David Lopez Measurements Intervals [place] Rate: 96 P: 41 OR: 146 QRS: 24 QRSD: 89 T: 41 QT: 367 QTc: 464 Interpretive Statements Sinus rhythm Ventricular premature complex RSR' in V1 or V2, probably normal variant Electronically Signed On 10-25-2024 18:40:50 PDT by David Lopez Please click the below link to view image of tracing.
== END 2024-10-22 19:20 | disposition home or self-care (01) ==
LOC: ER 17:11
DX: R00.2 Palpitations (principal); I10 Essential (primary) hypertension; E11.9 Type 2 diabetes mellitus without complications; E78.5 Hyperlipidemia, unspecified; F41.9 Anxiety disorder, unspecified; Z85.9 Personal history of malignant neoplasm, unspecified; Z79.899 Other long term (current) drug therapy; Z90.710 Acquired absence of both cervix and uterus; Z90.49 Acquired absence of other specified parts of digestive tract; Z79.52 Long term (current) use of systemic steroids
CPT/HCPCS: 36415; 80053; 82947; 82962; 83735; 83880; 84484; 85025; 85379; 85610; 85730; 93005